=== PATIENT | female | born 1975 | race Caucasian/White ===

== ENCOUNTER 2016-11-22 20:15 | Emergency (ER) | payer OTHER ==
[2016-11-22 20:26] VITALS: BP 142/75; PULSE 81; RESP 18; TEMP 96.6
[2016-11-22] MEDS ORDERED: SULFAMETHOX-TMP 800-160MG 1 EACH TAB PO STA (20:39)
--- NOTE | 2016-11-22 20:43 | ED ---
Skin/Abscess/FB HPI - General Chief complaint: Skin/Abscess/Foreign Body Stated complaint: Insect Bite Time Seen by Provider: 11/22/16 20:33 Source: patient Mode of arrival: ambulatory Limitations: no limitations - History of Present Illness Initial comments: This 41-year-old female presenting to the emergency department with chief complaint of insect bite to left medial knee. Patient states she was sitting outside last night when she got bit by something. Patient states that this morning the area surrounding the bite is swollen and red. No treatment prior to arrival. MD complaint: insect bite/sting Onset/Timin -: days(s) Tetanus Up to Date: yes Location: RLE (Medial aspect of left knee) Severity: mild Severity scale (1-10): 0 Quality: other (Itching, aching) Consistency: intermittent Improves with: none Worsens with: none Context: other (Recently been outdoors) Associated symptoms: denies other symptoms Treatments Prior to Arrival: none - Related Data Previous Rx's Medication Instructions Recorded Sulfamethox-Tmp 800-160Mg [Bactrim 1 tab PO Q12HR #20 tab 11/22/16 DS 800-160 mg] Allergies Allergy/AdvReac Type Severity Reaction Status Date / Time Penicillins Allergy Unknown Verified 11/22/16 20:26 Review of Systems ROS Statement: Those systems with pertinent positive or pertinent negative responses have been documented in the HPI. ROS Other: All systems not noted in ROS Statement are negative. Past Medical History Past Medical History: No Reported History History of Any Multi-Drug Resistant Organisms: None Reported Past Surgical History: Section Additional Past Surgical History / Comment(s): right knee surgery Past Psychological History: No Psychological Hx Reported Smoking Status: Never smoker Past Alcohol Use History: None Reported Past Drug Use History: None Reported General Exam - General Exam Comments Initial Comments: GENERAL: Pt awake and alert, well-appearing, well-nourished, and in no acute distress. HEAD: Atraumatic, normocephalic. EYES: Pupils equal, round, sclera anicteric, conjunctiva are normal. ENT: Oropharynx clear without exudates. Moist mucous membranes. NECK:Supple without lymphadenopathy or JVD. LUNGS: Breath sounds clear to auscultation bilaterally. No wheezes, rales, or rhonchi. HEART: Heart S1, S2, no S3 or S4. No murmurs, rubs or gallops. ABDOMEN: Soft, nontender, nondistended, normoactive bowel sounds. No guarding, no rebound. MUSCULOSKELETAL: Normal ROM, no tenderness. Strength 5/5. EXTREMITIES: 2+ peripheral pulses. No edema. NEUROLOGICAL: Pt oriented x 3. No focal deficits noted. Strength and sensation grossly intact. PSYCH: Normal mood, normal affect. SKIN: Warm and dry. Approximately 3 cm circular erythema noted to medial aspect of right knee with 2 puncture sites which appears to be bites in the middle draining minimal serosanguineous drainage. No fluctuance noted. Limitations: no limitations Course Vital Signs 11/22/16 20:24 Temperature 96.6 F L Pulse Rate 81 Respiratory 18 Rate Blood Pressure 142/75 O2 Sat by Pulse 97 Oximetry Medical Decision Making - Medical Decision Making Cellulitis to right medial knee suspect secondary to insect bite without evidence of abscess. Patient placed on Bactrim. Patient instructed to apply topical bacitracin twice daily and keep wound clean. Patient agrees with treatment plan. Discharge instructions and return parameters reviewed. Disposition Clinical Impression: Cellulitis, Insect bites Disposition: HOME SELF-CARE Condition: Good Additional Instructions: Finish antibiotic as prescribed. Apply topical bacitracin to wound twice daily. Keep wound dry and clean. Please return to the emergency department if symptoms do not improve or get worse after 24 hours. Follow-up with primary care physician as directed. Prescriptions: Sulfamethox-Tmp 800-160Mg [Bactrim DS 800-160 mg] 1 tab PO Q12HR #20 tab Referrals: Margie Gill MD [Primary Care Provider] - 1-2 days Time of Disposition: 20:43
== END 2016-11-22 20:59 | disposition home or self-care (01) ==
LOC: EC 20:15
DX: S80.262A Insect bite (nonvenomous), left knee, initial encounter (principal); L03.116 Cellulitis of left lower limb; Z88.0 Allergy status to penicillin; W57.XXXA Bitten or stung by nonvenomous insect and other nonvenomous arthropods, initial encounter
CPT/HCPCS: 99282

== ENCOUNTER → 2018-04-06 | Outpatient (CLI) | payer OTHER ==
[2018-04-06 12:04] LABS: HCT 43.5 % (34.0-46.0); HGB 15.5 gm/dL (11.4-16.0); MCHC 35.6 g/dL (31.0-37.0); MCV 92.8 fL (80.0-100.0); Mean Platelet Volume 8.1; Platelet Count 248 k/uL (150-450); RBC 4.69 m/uL (3.80-5.40); RDW 12.1 % (11.5-15.5); WBC 7.4 k/uL (3.8-10.6)
[2018-04-06 19:06] LABS: Albumin 4.3 g/dL (3.80-4.90); Albumin/Globulin Ratio 2.15 (1.20-2.10); Anion Gap 2.5 mmol/L (4.00-12.00); Calcium 9.6 mg/dL (8.7-10.3); Carbon Dioxide 30.5 mmol/L (21.6-31.8); Potassium 4.7 mmol/L (3.5-5.5); Total Bilirubin 0.3 mg/dL (0.2-1.2); Total Protein 6.3 g/dL (6.2-8.2)
== END ==
LOC: LABWHC1 10:57
PROVIDERS: ATTEND Physician Assistant
DX: K51.011 Ulcerative (chronic) pancolitis with rectal bleeding (principal)
CPT/HCPCS: 36415; 80053; 85027

== ENCOUNTER → 2018-10-14 | Outpatient (CLI) | payer OTHER ==
--- NOTE | 2018-10-14 09:21 | MM ---
Reason for exam: clinical finding. Baseline mammogram. History: Patient had first child at age 37. Indicated problem(s): lump or thickening in the right breast. Physical Findings: Nurse did not find any significant physical abnormalities on exam. [facility] Diagnostic Mammo w CAD BREE Bilateral CC and MLO view(s) were taken. The breast tissue is heterogeneously dense. This may lower the sensitivity of mammography. No suspicious abnormality. These results were verbally communicated with the patient and result sheet given to the patient on 10/14/18. ASSESSMENT: Negative, BI-RAD 1 RECOMMENDATION: Routine screening mammogram of both breasts in 1 year.
== END | disposition home or self-care (01) ==
LOC: RADMAMWWP 06:50
PROVIDERS: ATTEND Family Medicine
DX: N63.10 Unspecified lump in the right breast, unspecified quadrant (principal)
CPT/HCPCS: 77066

== ENCOUNTER → 2023-09-17 | Outpatient (CLI) | payer BC ==
--- NOTE | 2023-09-17 16:35 | CT ---
EXAMINATION TYPE: CT abdomen pelvis wo con DATE OF EXAM: 09/17/2023 COMPARISON: None HISTORY: Vaginal bleeding x [address] DLP: 781.9 mGycm Examination of the solid and hollow viscera is limited given the lack of contrast. FINDINGS: LUNG BASES: No evidence for nodule. No evidence for infiltrate. LIVER/GB: The gallbladder is unremarkable. No space-occupying hepatic lesion. PANCREAS: No pancreatic mass identified. No inflammatory process seen. SPLEEN: No evidence for splenomegaly. No intrasplenic lesions seen. ADRENALS: No adrenal nodules identified. No evidence for thickening. KIDNEYS: No evidence for renal mass. No nephrolithiasis. No hydronephrosis. BOWEL: Appendix has a normal appearance. No evidence of bowel obstruction. No inflammatory process. Lymph nodes: No evidence for adenopathy greater than 1 cm. Abdominal aorta: Atheromatous changes seen. No evidence for aneurysm. Genital organs: Lobulated appearance of the uterine fundus may reflect leiomyomatous change. Left par aadnexal cystlike area measuring 3.1 x 1.9 cm. Further evaluation with ultrasound recommended. Right ovarian follicular cyst measuring 1.5 cm. Other: No significant abnormality. IMPRESSION: PELVIC ULTRASOUND RECOMMENDED FOR POSSIBLE ENDOLUMINAL UTERUS AND LEFT ADNEXAL CYSTIC AREA.
== END | disposition home or self-care (01) ==
LOC: RADCTMAIN 15:46
PROVIDERS: ATTEND Family Medicine
DX: N93.9 Abnormal uterine and vaginal bleeding, unspecified (principal)
CPT/HCPCS: 74176

== ENCOUNTER → 2023-10-30 | Outpatient (CLI) | payer OTHER ==
--- NOTE | 2023-10-30 11:20 | US ---
EXAMINATION TYPE: US pelvis complete transvag DATE OF EXAM: 10/30/2023 COMPARISON: None CLINICAL INDICATION: Female, 48 years old with history of N94.9 UNSP COND ASSOC W FEM GEN ORG D48.19 JACQUES OF; Abnormal CT per patient. Irregular menses. TECHNIQUE: Transvaginal (TV) and Transabdominal (TA) . Transabdominal sonographic images of the pel vis were acquired. Transvaginal sonographic images were medically necessary to better assess the fol lowing anatomy: Endometrium, ovaries Date of LMP: 10/21/2023, EXAM MEASUREMENTS: Uterus: 11.9 x 6.9 x 5.6 cm Endometrial Stripe: 1.8 cm Right Ovary: 4.5 x 2.4 x 2.6 cm Left Ovary: 3.9 x 2.0 x 2.0 cm 1. Uterus: Anteverted Enlarged in size. Possible left fibroid= 2.6 x 2.3 x 2.3 cm 2. Endometrium: Appears thickened, limited visualization 3. Right Ovary: follicles seen 4. Left Ovary: follicles seen 5. Bilateral Adnexa: Possible left cystic adnexal lesion = 2.7 x 2.8 x 1.6 cm 6. Posterior cul-de-sac: no free fluid IMPRESSION: 1. Thickened endometrial stripe. 2. 2.8 cm left adnexal hypoechoic mass. 3. The above findings warranted an MRI of the pelvis for further evaluation
== END | disposition home or self-care (01) ==
LOC: RADUSWWP 07:10
PROVIDERS: ATTEND Family Medicine
DX: N94.9 Unspecified condition associated with female genital organs and menstrual cycle (principal); D48.19 Other specified neoplasm of uncertain behavior of connective and other soft tissue; N92.6 Irregular menstruation, unspecified
CPT/HCPCS: 76830; 76856